=== PATIENT | female | born 1935 | race Caucasian/White ===

== ENCOUNTER 2019-01-19 19:38 | Emergency (ER) | payer MEDICARE ==
[2019-01-19] MEDS ORDERED: HYDROmorphone 0.5 MG/0.5 ML Syringe IM ONE ×2 (20:06→20:46)
--- NOTE | 2019-01-19 20:14 | EDM.PDOC ---
ED HPI GENERAL MEDICAL PROBLEM - General Chief Complaint: Lower Extremity Injury/Pain Stated Complaint: [facility] Time Seen by Provider: 01/19/19 19:45 Source of Information: Reports: Patient, EMS Notes Reviewed, RN Notes Reviewed History Limitations: Reports: No Limitations - History of Present Illness INITIAL COMMENTS - FREE TEXT/NARRATIVE: Patient is an 83-year-old female who presents to the ED via [facility] for the evaluation of right foot pain. Patient states that roughly 4 hours prior to arrival to the ED, she was going down her stairs, and ended up missing one of the steps, and rolled her right ankle inward. She states she had pain on the right lateral foot, and down into the arch. She notes that the pain was initially okay, however she has not been able to bear any weight on the foot at all as it is too painful. She states that she had not taken anything for pain meds, or iced the extremity. There is no obvious bruising to the right lateral foot. She notes most of her pain is in the foot and not the ankle itself. She notes that elevating the leg makes the pain feel the best. She denies any numbness and tingling into the toes, she is able to wiggle her toes. Right Foot Pain Score (Numeric/FACES): 9 - Related Data Allergies Allergy/AdvReac Type Severity Reaction Status Date / Time No Known Allergies Allergy Verified 01/19/19 19:42 Home Meds: Home Meds Acetaminophen/oxyCODONE [Percocet 325-5 MG] 1 each PO Q6H PRN #20 tab 01/19/19 [ Rx] Past Medical History HEENT History: Reports: Impaired Vision Cardiovascular History: Reports: Hypertension Musculoskeletal History: Reports: Osteoarthritis, Osteoporosis Social & Family History - Tobacco Use Smoking Status *Q: Never Smoker Review of Systems - Review of Systems Review Of Systems: See Below Constitutional: Reports: No Symptoms Eyes: Reports: No Symptoms Ears: Reports: No Symptoms Nose: Reports: No Symptoms Mouth/Throat: Reports: No Symptoms Respiratory: Reports: No Symptoms Cardiovascular: Reports: No Symptoms GI/Abdominal: Reports: No Symptoms Genitourinary: Reports: No Symptoms Musculoskeletal: Reports: Foot Pain (R lateral foot and R arch of foot). Denies : Joint Pain Skin: Denies: Bruising Neurological: Denies: Numbness, Tingling Psychiatric: Reports: No Symptoms ED EXAM, GENERAL - Physical Exam Exam: See Below Exam Limited By: No Limitations General Appearance: Alert, WD/WN, No Apparent Distress Eye Exam: Bilateral Eye: EOMI, Normal Inspection, PERRL Throat/Mouth: Normal Inspection, Normal Lips, Normal Teeth, Normal Gums, Normal Oropharynx, Normal Voice, No Airway Compromise Head: Atraumatic, Normocephalic Neck: Normal Inspection Respiratory/Chest: No Respiratory Distress, Lungs Clear, Normal Breath Sounds, No Accessory Muscle Use, Chest Non-Tender Cardiovascular: Normal Peripheral Pulses, Regular Rate, Rhythm, No Murmur Peripheral Pulses: 3+: Dorsalis Pedis (L), Dorsalis Pedis (R) GI/Abdominal: Normal Bowel Sounds, Soft, Non-Tender, No Distention, No Mass Extremities: Normal Inspection, Normal Capillary Refill Neurological: Alert, Oriented, Normal Cognition, No Motor/Sensory Deficits Psychiatric: Normal Affect, Normal Mood Skin Exam: Warm, Dry, Intact, Normal Color, No Rash ED TRAUMA EXTREMITY PROCEDURES - Splinting Right Lower Extremity Splint Site: R ankle/foot Pre-Procedure NV Status: Normal Post-Procedure NV Status: Normal Splint Material: Air Splint Applied & Form Fitted By: Provider Provider Post-Splint Application NV Check: NV Status Normal, Good Position Complications: No Course - Vital Signs Last Recorded V/S: Last Vital Signs Temp 98.3 F 01/19/19 19:40 Pulse 84 01/19/19 19:40 Resp 16 01/19/19 19:40 BP 161/49 H 01/19/19 19:40 Pulse Ox 98 01/19/19 19:40 - Orders/Labs/Meds Orders: Active Orders 24 hr Category Date Time Status Ankle Min 3V Rt [CR] Stat Exams 01/19/19 19:47 Ordered Foot Comp Min 3V Rt [CR] Stat Exams 01/19/19 19:47 Ordered DME for Discharge [COMM] Routine Oth 01/19/19 21:40 Ordered Meds: Medications Discontinued Medications Generic Name Dose Route Start Last Admin Trade Name Freq PRN Reason Stop Dose Admin Hydromorphone HCl 0.5 mg 01/19/19 20:06 01/19/19 20:16 Dilaudid IM 01/19/19 20:07 0.5 mg ONETIME ONE Administration Hydromorphone HCl 0.5 mg 01/19/19 20:46 01/19/19 21:07 Dilaudid IM 01/19/19 20:47 0.5 mg ONETIME ONE Administration Oxycodone/Acetaminophen 1 tab 01/19/19 21:57 Percocet 325-5 Mg PO 01/19/19 21:58 ONETIME ONE - Re-Assessments/Exams Free Text/Narrative Re-Assessment/Exam: 01/19/19 20:14 Patient presents to the ED for the evaluation of right foot pain after an ankle inversion injury. Did order x-rays of the ankle, and right foot. I myself was not able to identify any acute fracture or abnormality, official radiology read is pending at this time. I did order 0.5 mg IM Dilaudid for initial pain management. 01/19/19 20:52 X-rays were done, I cannot appreciate any bony fracture or abnormality, these were reviewed with Dr. Patino as well. Patient was still having an intense amount of pain, I did order 0.5 mg of Dilaudid and have ordered a foot CT to further rule out any occult fracture that may have been missed on x-ray. 01/19/19 21:07 They gave preliminary reads done on the patient's foot x-rays, Dr. Morrell cannot appreciate any sort of acute abnormalities at this time, he states however due to her osteopenia, that if she remains symptomatic she should have the studies. In 10-14 days. Due to her amount of pain, I will put her in a splint and have her be nonweightbearing. Patient states she would not be able to tolerate crutches well due to chronic arthritis in her shoulders. So I will write for a knee walker or scooter, that she can obtain through [facility] rehabilitation tomorrow. I will also provide the patient with pain medication so she may get a little bit of pain relief from this. Departure - Departure Time of Disposition: 21:41 Disposition: Home, Self-Care 01 Condition: Fair Clinical Impression: Sprain of right foot Qualifiers: Encounter type: initial encounter Qualified Code(s): S93.601A - Unspecified sprain of right foot, initial encounter - Discharge Information *PRESCRIPTION DRUG MONITORING PROGRAM REVIEWED*: No *COPY OF PRESCRIPTION DRUG MONITORING REPORT IN PATIENT TIANA: No Prescriptions: Acetaminophen/oxyCODONE [Percocet 325-5 MG] 1 each PO Q6H PRN #20 tab PRN Reason: Pain Instructions: Crutch Use, Adult, [id number], Foot Sprain, Pain Medicine Instructions, [id number] Referrals: PCP,Unknown [Ordering Only Provider] - Forms: ED Department Discharge Additional Instructions: You have been evaluated in the ER today regarding your right foot injury. X-rays were taking of a right ankle and your right foot, and there were no obvious acute bony fracture or abnormality appreciated at today's visit, however you are quite osteopenic, which means your bones are thin, and the radiologist recommends reimaging the foot in 10-14 days if your pain is not much better. Management in the ER tonight includes splinting your right ankle, and giving you crutches, so that you may be nonweightbearing. You were given a prescription for a knee scooter that may be provided through [facility] located at [address] [place] [address]. This is near the [employer], the [employer] kitchen, and the [employer]. You may go there tomorrow and obtain the scooter. Recommend that you follow up with your primary care provider, sometime next week for follow-up of your injury, to make sure that it is getting better. You were given a prescription for pain medications, Percocet 5/325's, please take as directed. Please pain medications can be constipating, recommend that you take a stool softener if you are not already doing so, also please try to take as few of these as possible, as these can be quite addictive. You may take 600 mg ibuprofen or 500 mg Tylenol or 6 hours for further pain relief, you may try to keep the oxycodone reserved for pain that is not relieved by Tylenol or ibuprofen alone. Please do not exceed more than 4000 mg Tylenol or 3200 mg ibuprofen in a 24-hour time span. You may ice or use heat to the foot as needed for further pain and swelling relief. Please return to the ER if your symptoms change or worsen. - My Orders Last 24 Hours: My Active Orders 01/19/19 19:47 Ankle Min 3V Rt [CR] Stat Foot Comp Min 3V Rt [CR] Stat 01/19/19 21:40 DME for Discharge [COMM] Routine - Assessment/Plan Last 24 Hours: My Active Orders 01/19/19 19:47 Ankle Min 3V Rt [CR] Stat Foot Comp Min 3V Rt [CR] Stat 01/19/19 21:40 DME for Discharge [COMM] Routine
[2019-01-19] MEDS ORDERED: Acetaminophen/oxyCODONE 325-5 MG Tab PO ONE ×2 (21:57→22:33)
--- NOTE | 2019-01-20 07:16 | CR ---
Right foot: Four views of the right foot were obtained. Comparison: No previous foot exam. No discrete fracture, dislocation or other bony abnormality is seen. Impression: 1. No discrete abnormality is appreciated on right foot study. Note: Because of osteopenia, if patient remains symptomatic repeat study in 10-14 days is recommended. Diagnostic code #1
--- NOTE | 2019-01-20 07:16 | CR ---
Right ankle: Four views of the right ankle were obtained. Comparison: No prior ankle study. Bony structures are osteopenic. Ankle mortise is symmetric. No fracture, dislocation or other bony abnormality is seen. Slight vascular calcification is noted. Impression: 1. Osteopenia and mild vascular calcification. 2. Nothing acute is appreciated on right ankle exam. Diagnostic code #2
== END 2019-01-19 22:36 | disposition home or self-care (01) ==
LOC: JD.ED 19:38
DX: S93.601A Unspecified sprain of right foot, initial encounter (principal); I10 Essential (primary) hypertension; X50.9XXA Other and unspecified overexertion or strenuous movements or postures, initial encounter
CPT/HCPCS: 73610; 73630; 96372; 99283; A9270; J1170

== ENCOUNTER 2020-07-28 18:53 | Emergency (ER) | payer MEDICARE ==
--- NOTE | 2020-07-28 19:01 | EDM.PDOC ---
ED HPI GENERAL MEDICAL PROBLEM - General Chief Complaint: General Stated Complaint: [facility] Time Seen by Provider: 07/28/20 18:59 - History of Present Illness INITIAL COMMENTS - FREE TEXT/NARRATIVE: 84-year-old female presents the emergency room brought in by EMS with muscle spasms and cramps in her lower legs. Patient states has been going on the last 4 days she has been traveling quite a bit she was staying in [place] went to [place] for graduation and then flew appear to be with her sister this has been getting worse over the last couple of days. Patient has not had any significant medication changes. She denies any breathing difficulty shortness of breath chest or feet and to a lesser degrees her hand was trying to claw up he takes Paxil for depression lisinopril for high blood pressure uses Tylenol for aches and pains she is has not been started on any new medications. Bilateral Feet Pain Score (Numeric/FACES): 10 - Related Data Allergies Allergy/AdvReac Type Severity Reaction Status Date / Time No Known Allergies Allergy Verified 01/19/19 19:42 Home Meds: Home Meds Acetaminophen/oxyCODONE [Percocet 325-5 MG] 1 each PO Q6H PRN #20 tab 01/19/19 [Rx] Potassium Chloride [Klor-Con M20] 40 meq PO DAILY #4 tab.er.prt 07/28/20 [Rx] Past Medical History HEENT History: Reports: Impaired Vision Cardiovascular History: Reports: Hypertension Musculoskeletal History: Reports: Osteoarthritis, Osteoporosis ED ROS GENERAL - Review of Systems Review Of Systems: See Below Constitutional: Reports: No Symptoms HEENT: Reports: No Symptoms Respiratory: Reports: No Symptoms Cardiovascular: Reports: No Symptoms GI/Abdominal: Reports: Abdominal Pain (Chronic its been this way for years). Denies: Constipation, Diarrhea, Nausea, Vomiting : Reports: No Symptoms Musculoskeletal: Reports: Other (Peripheral muscle spasms mostly in the feet up into the ankle) Skin: Reports: No Symptoms. Denies: Rash Neurological: Reports: No Symptoms Psychiatric: Reports: No Symptoms Hematologic/Lymphatic: Reports: No Symptoms Immunologic: Reports: No Symptoms ED EXAM, GENERAL - Physical Exam Exam: See Below Exam Limited By: No Limitations General Appearance: Alert, No Apparent Distress Ears: Normal External Exam, Normal Canal, Hearing Grossly Normal, Normal TMs Ear Exam: Bilateral Ear: Auricle Normal, Canal Normal, TM normal Nose: Normal Inspection, Normal Mucosa, No Blood Throat/Mouth: Normal Inspection, Normal Lips, Normal Gums, Normal Oropharynx, Normal Voice, No Airway Compromise Head: Atraumatic, Normocephalic Neck: Normal Inspection, Supple, Non-Tender, Full Range of Motion. No: Lymphadenopathy (L), Lymphadenopathy (R) Respiratory/Chest: No Respiratory Distress, Lungs Clear, Normal Breath Sounds Cardiovascular: Regular Rate, Rhythm, No Edema, Systolic Murmur (2/6 systolic murmur heard best in the left upper sternal border) GI/Abdominal: Normal Bowel Sounds, Soft, Non-Tender. No: Guarding, Rigid, Rebound Back Exam: Normal Inspection. No: CVA Tenderness (L), CVA Tenderness (R) Extremities: Other (No spastic muscles noted at this time) Neurological: Alert, Oriented, Normal Cognition Psychiatric: Normal Affect, Normal Mood Skin Exam: Warm, Dry, Intact Course - Vital Signs Last Recorded V/S: Last Vital Signs Temp 37.2 C 07/28/20 18:58 Pulse 96 07/28/20 18:58 Resp 17 07/28/20 18:58 BP 147/91 H 07/28/20 18:58 Pulse Ox 96 07/28/20 18:58 - Orders/Labs/Meds Orders: Active Orders 24 hr Category Date Time Status Lactated Ringers [Ringers, Lactated] 1,000 ml Med 07/28/20 19:15 Active IV ASDIRECTED Magnesium Sulfate/Water [Magnesium Sulfate in Water 4 Med 07/28/20 20:15 Active GM/50 ML] 4 gm Premix Bag 1 bag IV ONETIME Medication Orders Lactated Ringer's (Ringers, Lactated) 1,000 mls @ 150 mls/hr IV ASDIRECTED TAYLOR Last Admin: 07/28/20 20:07 Dose: 150 mls/hr Documented by: KYLAH Magnesium Sulfate 4 gm/ Premix 50 mls @ 12.5 mls/hr IV ONETIME ONE Stop: 07/29/20 00:14 Last Admin: 07/28/20 20:23 Dose: 12.5 mls/hr Documented by: KYLAH Labs: Laboratory Tests 07/28/20 07/28/20 Range/Units 19:00 19:00 WBC 7.22 (3.98-10.04) K/mm3 RBC 3.88 L (3.98-5.22) M/mm3 Hgb 10.3 L (11.2-15.7) gm/dl Hct 33.3 L (34.1-44.9) % MCV 85.8 (79.4-94.8) fl MCH 26.5 (25.6-32.2) pg MCHC 30.9 L (32.2-35.5) g/dl RDW Std Deviation 44.8 (36.4-46.3) fL Plt Count 305 (182-369) K/mm3 MPV 10.1 (9.4-12.3) fl Neut % (Auto) 90.1 H (34.0-71.1) % Lymph % (Auto) 5.0 L (19.3-51.7) % Jay % (Auto) 4.7 (4.7-12.5) % Eos % (Auto) 0 L (0.7-5.8) Baso % (Auto) 0.1 (0.1-1.2) % Neut # (Auto) 6.50 H (1.56-6.13) K/mm3 Lymph # (Auto) 0.36 L (1.18-3.74) K/mm3 Jay # (Auto) 0.34 (0.24-0.36) K/mm3 Eos # (Auto) 0.00 L (0.04-0.36) K/mm3 Baso # (Auto) 0.01 (0.01-0.08) K/mm3 Sodium 137 (136-145) mEq/L Potassium 3.4 L (3.5-5.1) mEq/L Chloride 103 (98-107) mEq/L Carbon Dioxide 19 L (21-32) mEq/L Anion Gap 18.4 H (5-15) BUN 31 H (7-18) mg/dL Creatinine 1.2 H (0.55-1.02) mg/dL Est Cr Clr Drug Dosing 35.15 mL/min Estimated GFR (MDRD) 43 (>60) mL/min BUN/Creatinine Ratio 25.8 H (14-18) Glucose 140 H (70-99) mg/dL Calcium 8.4 L (8.5-10.1) mg/dL Phosphorus 3.0 (2.6-4.7) mg/dL Magnesium 1.7 L (1.8-2.4) mg/dL Total Bilirubin 0.3 (0.2-1.0) mg/dL AST 20 (15-37) U/L ALT 19 (14-59) U/L Alkaline Phosphatase 127 H (46-116) U/L Creatine Kinase 73 (26-192) U/L Total Protein 7.5 (6.4-8.2) g/dl Albumin 3.7 (3.4-5.0) g/dl Globulin 3.8 gm/dL Albumin/Globulin Ratio 1.0 (1-2) TSH 3rd Generation 0.986 (0.358-3.74) uIU/mL Meds: Medications Generic Name Dose Route Start Last Admin Trade Name Freq PRN Reason Stop Dose Admin Lactated Ringer's 1,000 mls @ 150 mls/hr 07/28/20 19:15 07/28/20 20:07 Ringers, Lactated IV 150 mls/hr ASDIRECTED TAYLOR Administration Magnesium Sulfate 4 gm/ Premix 50 mls @ 12.5 mls/hr 07/28/20 20:15 07/28/20 20:23 IV 07/29/20 00:14 12.5 mls/hr ONETIME ONE Administration Discontinued Medications Generic Name Dose Route Start Last Admin Trade Name Freq PRN Reason Stop Dose Admin Lactated Ringer's 500 mls @ 999 mls/hr 07/28/20 19:11 07/28/20 19:21 Ringers, Lactated IV 07/28/20 19:41 999 mls/hr .BOLUS ONE Administration Magnesium Sulfate/Dextrose 1 0 mls @ 100 mls/hr 07/28/20 19:58 07/28/20 20:36 gm/ Premix IV 07/28/20 19:59 Not Given ONETIME ONE Magnesium Sulfate/Dextrose 1 100 mls @ 100 mls/hr 07/28/20 20:00 07/28/20 20:36 gm/ Premix IV 07/28/20 20:59 Not Given ONETIME ONE Potassium Chloride 40 meq 07/28/20 19:57 07/28/20 20:24 Potassium Chloride 20 Meq Tab.Er PO 07/28/20 19:58 40 meq ONETIME ONE Administration - Re-Assessments/Exams Free Text/Narrative Re-Assessment/Exam: 07/28/20 20:01 The patient is a little low on potassium and magnesium will give 2 g of magnesium 40 mEq potassium and continue with LR 07/28/20 22:12 Patient continues to feel better after getting the fluids and magnesium and p otassium. Anticipate discharge very soon Departure - Departure Time of Disposition: 22:13 Disposition: Home, Self-Care 01 Clinical Impression: Mild dehydration, Hypokalemia, Hypomagnesemia - Discharge Information Prescriptions: Potassium Chloride [Klor-Con M20] 40 meq PO DAILY #4 tab.er.prt Instructions: Hypomagnesemia, Hypokalemia, Dehydration, Adult, [id number] Referrals: PCP,Not In Area [Primary Care Provider] - Forms: ED Department Discharge Additional Instructions: Return to the emergency room with any questions problems or worsening symptoms. I have sent a prescription for potassium to [facility] by [facility]. Take 2 tablets Wednesday and Wednesday mornings. 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 Drink plenty of fluids. Follow-up in the hospital clinic in 1 week for recheck. [phone] Sepsis Event Note (ED) - Focused Exam Vital Signs: Vital Signs Temp Pulse Resp BP Pulse Ox 07/28/20 18:58 37.2 C 96 17 147/91 H 96 - My Orders Last 24 Hours: My Active Orders 07/28/20 19:15 Lactated Ringers [Ringers, Lactated] 1,000 ml IV ASDIRECTED 07/28/20 20:15 Magnesium Sulfate/Water [Magnesium Sulfate in Water 4 GM/50 ML] 4 gm Premix Bag 1 bag IV ONETIME - Assessment/Plan Last 24 Hours: My Active Orders 07/28/20 19:15 Lactated Ringers [Ringers, Lactated] 1,000 ml IV ASDIRECTED 07/28/20 20:15 Magnesium Sulfate/Water [Magnesium Sulfate in Water 4 GM/50 ML] 4 gm Premix Bag 1 bag IV ONETIME
[2020-07-28] MEDS ORDERED: Lactated Ringers 500 ML IV ONE (19:11)
[2020-07-28] MEDS ORDERED: Lactated Ringers 1,000 ML IV SCH (19:15)
[2020-07-28] MEDS ORDERED: Potassium Chloride 20 MEQ Tab.ER PO ONE (19:57)
[2020-07-28] MEDS ORDERED: Magnesium Sulfate/Water 4 GM in Premix Bag 1 BAG IV ONE (20:15)
== END 2020-07-28 23:17 | disposition home or self-care (01) ==
LOC: JD.ED 18:53
DX: E86.0 Dehydration (principal); E87.6 Hypokalemia; E83.42 Hypomagnesemia; I10 Essential (primary) hypertension
CPT/HCPCS: 36415; 80053; 82550; 83735; 84100; 84443; 85025; 96365; 96366; 99284; A9270; J3475; J7120